=== PATIENT | female | born 1970 | race Caucasian/White ===

== ENCOUNTER 2019-12-23 11:58 | Emergency (ER) | payer OTHER ==
[2019-12-23 12:03] VITALS: BMI 30.2
--- NOTE | 2019-12-23 12:43 | PDOC ---
History of Present Illness - General Chief Complaint: Back Pain Stated Complaint: BACK PAIN Time Seen by Provider: 12/23/19 12:29 History Source: Patient - History of Present Illness Initial Comments: 12/23/19 12:59 Chief complaint: Back pain Patient 49-year-old female with history of hypothyroid and PE after her surgery who is complaining of 5 days of lower to mid back pain after sleeping on an air mattress. Patient has pain moving. Patient does not have any fever, chest pain or shortness of breath but has pain when she breathes. Patient is a smoker. Patient is not on anticoagulation. Patient took Tylenol without relief. No numbness, incontinence or saddle anesthesia. GENERAL/CONSTITUTIONAL: No fever, weakness. dizziness HEAD, EYES, EARS, NOSE AND THROAT: No change in vision. No ear pain or discharge. No sore throat. CARDIOVASCULAR: No chest pain RESPIRATORY: No shortness of breath or cough GASTROINTESTINAL: No pain, nausea, vomiting, diarrhea or constipation GENITOURINARY: No dysuria MUSCULOSKELETAL: No neck +back pain SKIN: No rash NEUROLOGIC: No headache, vertigo, loss of consciousness, or loss of sensation. GENERAL: The patient is awake, alert, and fully oriented, in no acute distress. HEAD: Normal with no signs of trauma. EYES: Pupils equal, round and reactive to light, sclera anicteric, conjunctiva clear. ENT: pharynx: no erythema, no exudate, uvula midline NECK: supple CHEST: clear, nontender, rr ABD: soft, nontender BACK: + Midline lower tenderness, + tenderness In the right lower posterior rib area EXTREMITIES: Normal range of motion, no edema. NEUROLOGICAL: Normal speech, normal gait. Cranial nerves II through XII grossly intact, no gross focal abnormalities SKIN: Warm, Dry Past History - Past Medical History Allergies/Adverse Reactions: Allergies Allergy/AdvReac Type Severity Reaction Status Date / Time Penicillins Allergy Unknown Verified 12/23/19 12:03 Home Medications: Ambulatory Orders Levothyroxine [Synthroid -] 137 mcg PO DAILY 09/02/14 Omeprazole 0 mg PO DAILY 12/23/19 Anemia: No Asthma: No Cancer: No Cardiac Disorders: No CVA: No COPD: No CHF: No Dementia: No Diabetes: No GI Disorders: No Disorders: No HTN: No Hypercholesterolemia: No Liver Disease: No Seizures: No Thyroid Disease: Yes - Surgical History Abdominal Surgery: No Appendectomy: No Cardiac Surgery: No Cholecystectomy: No Lung Surgery: No Neurologic Surgery: No Orthopedic Surgery: No - Immunization History Immunization Up to Date: Yes - Psycho Social/Smoking Cessation Hx Smoking History: Never smoked Have you smoked in the past 12 months: Yes Number of Cigarettes Smoked Daily: 5 If you are a former smoker, when did you quit?: 1 yr Information on smoking cessation initiated: No 'Breaking Loose' booklet given: 09/12/14 Hx Alcohol Use: No Drug/Substance Use Hx: No Substance Use Type: None Hx Substance Use Treatment: No *Physical Exam - Vital Signs Last Vital Signs Temp Pulse Resp BP Pulse Ox 98.1 F 78 19 137/79 99 12/23/19 12:01 12/23/19 12:01 12/23/19 12:01 12/23/19 12:01 12/23/19 12:01 ED Treatment Course - LABORATORY CBC & Chemistry Diagram: 12/23/19 13:21 12/23/19 13:21 Medical Decision Making - Medical Decision Making 12/23/19 13:04 49-year-old female with history of PE, hypothyroid, not on anticoagulation with lower and mid back pain for 5 days, severe in nature. No neurological symptoms. No chest pain or shortness of breath but pain with breathing secondary to severity of pain. Patient is not short of breath or hypoxic. This is more likely muscular pain but given history will get labs, d-dimer and signed out to Collin PIERRE for further evaluation Discharge - Discharge Information Problems reviewed: Yes Clinical Impression/Diagnosis: Back pain Qualifiers: Back pain location: back pain in unspecified location Chronicity: acute Back pain laterality: unspecified Qualified Code(s): M54.9 - Dorsalgia, unspecified - Follow up/Referral Referrals: Yen Alcaraz [Primary Care Provider] - - Patient Discharge Instructions - Post Discharge Activity
[2019-12-23] MEDS ORDERED: CYCLOBENZAPRINE HCL 10 MG TABLET (FP) PO ONE (13:05)
[2019-12-23] MEDS ORDERED: CYCLOBENZAPRINE HCL 10 MG TABLET (FP) ONE (13:10)
--- NOTE | 2019-12-23 13:27 | PDOC ---
*Physical Exam - Vital Signs Last Vital Signs Temp Pulse Resp BP Pulse Ox 98.1 F 78 19 137/79 99 12/23/19 12:01 12/23/19 12:01 12/23/19 12:01 12/23/19 12:01 12/23/19 12:01 - Physical Exam General Appearance: No: Apparent Distress Respiratory/Chest: positive: Lungs Clear, Normal Breath Sounds. negative: Respiratory Distress Cardiovascular: positive: Regular Rhythm, Regular Rate, S1, S2. negative: [place] r Gastrointestinal/Abdominal: positive: Soft. negative: Tender Musculoskeletal: positive: Muscle Spasm (along L lumbar paraspinal muscles) Neurologic: positive: Alert, Motor Strength 5/5, Other (normal gait) ED Treatment Course - LABORATORY CBC & Chemistry Diagram: 12/23/19 13:21 12/23/19 13:21 - Medications Given in the ED: ED Medications Discontinued Medications Generic Name Dose Route Start Last Admin Trade Name Freq PRN Reason Stop Dose Admin Cyclobenzaprine HCl 10 mg 12/23/19 13:05 12/23/19 13:10 Flexeril - PO 12/23/19 13:06 10 mg ONCE ONE Administration Oxycodone/Acetaminophen 1 combo 12/23/19 12:53 12/23/19 13:01 Percocet 5/325 - PO 12/23/19 12:54 1 combo ONCE ONE Administration Medical Decision Making - Medical Decision Making Patient signed out to be by [employer] Radha Patient complaining of left lower back pain after sleeping on air mattress 4 days ago. Denies radiation of pain. Denies fever, URI symptoms, shortness of breath, chest pain, abdominal pain, nausea, vomiting, urinary symptoms, bowel/bladder incontinence, saddle/groin paresthesias. Back pain is worse with movement of her spine. Signed out for follow-up on labs for r/o PE given prior hx of PE in the past Unable to PERC out given age Wells score: 0 Was given Percocet and Flexeril for pain 12/23/19 13:24 D-dimer elevated Patient noted mild improvement in pain Will give Lidocaine patch and Morphine Plan for CTA chest to r/o PE and CT lumbar spine 12/23/19 14:59 Pending [address]A chest and CT lumbar spine Signed out to GABBY Bush 12/23/19 15:55 Discharge - Discharge Information Problems reviewed: Yes Clinical Impression/Diagnosis: Back pain Qualifiers: Back pain location: back pain in unspecified location Chronicity: acute Back pain laterality: unspecified Qualified Code(s): M54.9 - Dorsalgia, unspecified - Follow up/Referral Referrals: Yen Alcaraz [Primary Care Provider] - - Patient Discharge Instructions - Post Discharge Activity
[2019-12-23 13:43] LABS: BASO % 0.9 % (0-2.0); EOS % 15.6 % (0-4.5); HEMATOCRIT 37.7 % (32.4-45.2); HEMOGLOBIN 12.7 GM/dL (10.7-15.3); LYMPH % 22.9 % (8-40); MCH 29.5 pg (25.7-33.7); MCHC 33.7 g/dl (32.0-36.0); MEAN CELL VOLUME 87.5 fl (80-96); MEAN PLT VOLUME 9.9 fl (7.5-11.1); MONO % 5.8 % (3.8-10.2); NEUT % 54.8 % (42.8-82.8); PLATELET COUNT 213 K/MM3 (134-434); RBC 4.32 M/mm3 (3.60-5.2); RDW 13.7 % (11.6-15.6); WHITE BLOOD COUNT 10.9 K/mm3 (4.0-10.0)
[2019-12-23 13:56] LABS: INR 0.94 (0.83-1.09); PROTHROMBIN TIME (PATIENT) 11.1 SEC (9.7-13.0)
[2019-12-23 14:00] LABS: ACTIVATED PTT 30.1 SECONDS (25.2-36.5)
[2019-12-23 14:07] LABS: BLOOD UREA NITROGEN 14.4 mg/dL (7-18); CALCIUM 8.4 mg/dL (8.5-10.1); CREATININE 0.7 mg/dL (0.55-1.3); POTASSIUM 4.2 mmol/L (3.5-5.1)
[2019-12-23] MEDS ORDERED: LIDOCAINE 5% TOPICAL PATCH TP ONE (14:33)
[2019-12-23] MEDS ORDERED: LIDOCAINE 5% TOPICAL PATCH ONE (14:45)
[2019-12-23] MEDS ORDERED: MORPHINE SULFATE 2 MG/ML VIAL IVPUSH ONE (14:53)
[2019-12-23] MEDS ORDERED: MORPHINE SULFATE 2 MG/ML VIAL ONE (14:58)
--- NOTE | 2019-12-23 16:49 | PDOC ---
*Physical Exam - Vital Signs Last Vital Signs Temp Pulse Resp BP Pulse Ox 98.1 F 78 19 137/79 99 12/23/19 12:01 12/23/19 12:01 12/23/19 12:01 12/23/19 12:01 12/23/19 12:01 - Physical Exam General Appearance: Yes: Nourished, Appropriately Dressed, Apparent Distress Musculoskeletal: positive: Normal Inspection, Other (TTP of the R paraspinous musculature T12-S1) ED Treatment Course - LABORATORY CBC & Chemistry Diagram: 12/23/19 13:21 12/23/19 13:21 - ADDITIONAL ORDERS Additional order review: Laboratory Results 12/23/19 12/23/19 12/23/19 13:21 13:21 13:21 PT with INR 11.10 INR 0.94 PTT (Actin FS) 30.1 D-Dimer 894 H Sodium 141 Potassium 4.2 Chloride 111 H Carbon Dioxide 23 Anion Gap 7 L BUN 14.4 Creatinine 0.7 Est GFR (CKD-EPI)AfAm 116.27 Est GFR (CKD-EPI)NonAf 100.32 Random Glucose 104 Calcium 8.4 L 12/23/19 13:21 RBC 4.32 MCV 87.5 MCHC 33.7 RDW 13.7 MPV 9.9 Neutrophils % 54.8 Lymphocytes % 22.9 D Monocytes % 5.8 Eosinophils % 15.6 H Basophils % 0.9 - Medications Given in the ED: ED Medications Discontinued Medications Generic Name Dose Route Start Last Admin Trade Name Freq PRN Reason Stop Dose Admin Cyclobenzaprine HCl 10 mg 12/23/19 13:05 12/23/19 13:10 Flexeril - PO 12/23/19 13:06 10 mg ONCE ONE Administration Lidocaine 1 patch 12/23/19 14:33 12/23/19 14:55 Lidoderm Patch - TP 12/23/19 14:34 1 patch ONCE ONE Administration Morphine Sulfate 2 mg 12/23/19 14:53 12/23/19 15:05 Morphine Sulfate IVPUSH 12/23/19 14:54 2 mg ONCE ONE Administration Oxycodone/Acetaminophen 1 combo 12/23/19 12:53 12/23/19 13:01 Percocet 5/325 - PO 12/23/19 12:54 1 combo ONCE ONE Administration Medical Decision Making - Medical Decision Making 12/23/19 16:48 Sign out was received from GABBY Fry at 16:00 Pt was upgraded from FT for back pain Pt has hx of PE and had elevated D-dimer. No on anticoaguation at this time Pt feels better after medication given by previous providers Currently pending CT results. 12/23/19 18:49 No PE on CTA Back CT not back Pt with no neurological deficits 12/23/19 22:55 CT lumbar spine shows no acute abnormalities. Will dc home with supportive therapy as it is most likely a muscle spasm and ortho follow up Pt reports feeling much better I discussed the physical exam findings, ancillary test results and final diagnoses with the patient. I answered all of the patient's questions. The patient was satisfied with the care received and felt comfortable with the discharge plan and treatment plan. The Patient agrees to follow up with the primary care physician/specialist within 24-72 hours. Return precautions were given. Discharge - Discharge Information Problems reviewed: Yes Clinical Impression/Diagnosis: Back pain Qualifiers: Back pain location: back pain in unspecified location Chronicity: acute Back pain laterality: unspecified Qualified Code(s): M54.9 - Dorsalgia, unspecified Condition: Stable Disposition: HOME - Admission No - Additional Discharge Information Prescriptions: Cyclobenzaprine HCl [Flexeril -] 10 mg PO HS #10 tablet Ibuprofen 600 mg PO Q6H #30 tablet - Follow up/Referral Referrals: Yen Alcaraz [Primary Care Provider] - - Patient Discharge Instructions Patient Printed Discharge Instructions: DI for Low Back Pain Additional Instructions: You have low back pain due to a muscle spasm. Please take ibuprofen 800 mg 3 times a day not to exceed 3000 mg a day. You were also prescribed Flexeril. Please take this medication every 8 hours for the first day. Then take the medication before you go to bed. Do not drive after taking this medication as it may make you sleepy. You may use warm compresses on your back to help with her symptoms. Please follow-up with your primary care doctor. If your symptoms do not resolve in 3-5 days, follow-up with orthopedics. A referral has been provided for you. Return to the emergency department if you have worsening back pain, bladder or bowel incontinence, numbness and tingling in her legs, changes in the way you walk, or any new or worsening symptoms. Your CAT scans did not reveal a blood clot in your lungs or an emergent process in your back. - Post Discharge Activity Work/Back to School Note: Back to Work
[2019-12-23 20:08] VITALS: BP 140/62; PULSE 69; TEMP 97.6
== END 2019-12-23 20:09 | disposition home or self-care (01) ==
LOC: JERFT 11:58 → JER 11:58
PROC: 3E033NZ Introduction of Analgesics, Hypnotics, Sedatives into Peripheral Vein, Percutaneous Approach (ICD-10-PCS; principal; 2019-12-23)
DX: M54.5 Low back pain (principal); E03.9 Hypothyroidism, unspecified; F17.210 Nicotine dependence, cigarettes, uncomplicated; Z86.711 Personal history of pulmonary embolism
CPT/HCPCS: 36415; 71275-TC; 72131-TC; 80048; 85025; 85379; 85610; 85730; 99285-25; Q9967